=== PATIENT | male | born 1960 | race Caucasian/White ===

== ENCOUNTER → 2022-02-06 12:54 | Outpatient (BNVA) | payer MEDICARE, MEDICAID, SELFPAY | PROVIDERS: PCP Internal Medicine; Visit Provider Psychiatry & Neurology Neurology | DX: G40.909 Epilepsy, unspecified, not intractable, without status epilepticus (principal); G81.94 Hemiplegia, unspecified affecting left nondominant side; Z87.820 Personal history of traumatic brain injury; Z79.899 Other long term (current) drug therapy | CPT/HCPCS: 99202 ==

== ENCOUNTER → 2022-04-18 10:52 | Outpatient (BNVA) | payer MEDICARE, MEDICAID, SELFPAY | PROVIDERS: PCP Internal Medicine; Visit Provider Nurse Practitioner Family | DX: G40.909 Epilepsy, unspecified, not intractable, without status epilepticus (principal); G81.94 Hemiplegia, unspecified affecting left nondominant side | CPT/HCPCS: 99212 ==

== ENCOUNTER 2023-01-30 13:56 | Outpatient (AMB) | payer MEDICARE, MEDICAID, SELFPAY ==
--- NOTE | 2023-01-30 13:57 | A.OFFVIS_ITS ---
Intake Vital Signs 01/30/23 14:02 BP 130/82 Blood Pressure Location Rt brachial Position Sitting Pulse 45 L Pulse Source Pulse Oximeter Intake Visit Reasons: 1s f/u Epilepsy - Confirmed Intake Note: Pt presents today for epilepsy Allergies No Known Allergies [No Known Allergies*] Allergy (Verified 01/30/23 14:04) Medication List - Last Reconciled 01/30/23 by Sita Tavarez CNP acetaminophen ER (Tylenol 8 Hour) 650 mg PO Q12H albuterol sulfate 90 mcg/actuation 2 puffs inhalation Q6H PRN amantadine HCl 200 mg PO BID amlodipine (Norvasc) 10 mg PO DAILY ascorbic acid (vitamin C) mg PO BID aspirin (Ecotrin Low Strength) 81 mg PO DAILY chlorhexidine gluconate 0.12% 15 mL buccal DAILY divalproex ER 500 mg PO TID 90 days docusate sodium (Colace) 100 mg PO DAILY fluoride (sodium) 1.1% PO furosemide (Lasix) 20 mg PO DAILY lactulose 15 mL PO DAILY levetiracetam 500 mg PO BID lisinopril (Zestril) 10 mg PO DAILY mirabegron ER (Myrbetriq) 50 mg PO DAILY pravastatin 20 mg PO DAILY quetiapine 100 mg PO BEDTIME sennosides 17.2 mg PO DAILY tamsulosin (Flomax) 0.4 mg PO DAILY venlafaxine ER 150 mg PO DAILY HPI HPI Comments History of Present Illness Details 63 y/o male patient presents with Shelter staff for follow up of seizure and tremor. Pt reports no breakthrough seizure activity. He is on Keppra 500 mg BID and divalproex ER 500 mg TID. Pt compliant with his m edications. Shelter staff reports that patient's BUE tremor has been stable. Pt's psychiatrist decreased seroquel dosage to 100 mg qHS Pt also has hx of ZIA but pt refuses to use CPAP. The lab result was WNL. [facility] Medical History Alcohol abuse Anemia Anxiety Brain injury Depression Hemorrhagic stroke Left hemiparesis Memory change Seizure disorder Family History Father Colon cancer Social History Housing: Assisted Living Facility Unable to assess alcohol history related to: Unable to respond Patient Tobacco Use Status: Never used Tobacco Review of Systems Const All systems reviewed & are unremarkable except as noted in HPI and below Eyes Reports photophobia Physical Exam Vital Signs: Last Vital Signs Pulse 45 L 01/30/23 14:02 BP 130/82 01/30/23 14:02 Const Orientation/consciousness: oriented to person Limitations: wheelchair Eyes Direct Ophthalmoscopy: photophobia Neuro Other: Right laterocollis and torticollis Left facial weakness Left UE and LE 3/5 * Right UE 4/5 Right Le 5-/5 General: oriented to person Cognition (Neuro): abnormal cognition Speech: Other speech findings present (Neuro) (slurred) Gait exam (Neuro): Other gait observations present (wheel chair) Deep tendon reflexes (DTR's): Right triceps reflex intensity grade: 2+, Left triceps reflex intensity grade: 3+, Rt Biceps (C5, C6): 2+, Left biceps reflex intensity grade: 3+, Right brachioradialis reflex intensity grade: 2+, Left brachioradialis reflex intensity grade: 3+ and Right patellar reflex intensity grade: 3+ Psych Speech and movement: Slurred speech present Assessment & Plan Assessment & Plan (1) Seizure disorder: Code(s): G40.909 - Epilepsy, unspecified, not intractable, without status epilepticus (2) Left hemiparesis: Code(s): G81.94 - Hemiplegia, unspecified affecting left nondominant side Plan Advised to continue depakote ER 500mg TID and Levetiracetam 500mg BID. Will check routine lab (CBC, CMP) and depakote level. Orders: Orders Comprehensive Met. Panel 01/30/23 G40.909 - Epilepsy, unspecified, not intractable, without status epilepticus Complete Blood Count Auto Diff 01/30/23 G40.909 - Epilepsy, unspecified, not intractable, without status epilepticus Medications: New divalproex ER 500 mg PO TID 270 tabs 4RF 90 days Refilled levetiracetam 500 mg PO BID 180 tabs 4RF Coding Level of Care Code Est Pt Level 3 (91843) Diagnoses Seizure disorder G40.909 Left hemiparesis G81.94
[2023-01-30 14:02] VITALS: BP 130/82; PULSE 45
== END 2023-01-30 14:28 | disposition home or self-care (01) ==
PROVIDERS: Visit Provider Nurse Practitioner Family
DX: G40.909 Epilepsy, unspecified, not intractable, without status epilepticus (principal); G81.94 Hemiplegia, unspecified affecting left nondominant side
CPT/HCPCS: 99213

== ENCOUNTER → 2023-01-30 13:56 | Outpatient (BNVA) | payer MEDICARE, MEDICAID, SELFPAY | PROVIDERS: Visit Provider Nurse Practitioner Family | DX: G40.909 Epilepsy, unspecified, not intractable, without status epilepticus (principal); G81.94 Hemiplegia, unspecified affecting left nondominant side; Z79.899 Other long term (current) drug therapy | CPT/HCPCS: 99212 ==